=== PATIENT | female | born 1960 | race Caucasian/White ===

== ENCOUNTER 2023-01-22 14:45 | Emergency (ER) | payer OTHER, SELFPAY ==
[2023-01-22 15:03] VITALS: BP 125/77; PULSE 93; RESP 16; TEMP 36; O2SAT 98; BMI 32.9
--- NOTE | 2023-01-22 15:03 | ED.GENADULT ---
HPI - General Adult General Chief complaint: Skin/Abscess/Foreign Body <CECY Daniel - Last Filed: 01/22/23 15:11> Stated complaint: Cellulitis <CECY Daniel - Last Filed: 01/22/23 15:11> Time Seen by Provider: 01/22/23 17:05 <CECY Daniel - Last Filed: 01/22/23 15:11> Source: patient, RN notes reviewed and old records reviewed <Thiago Franz - Last Filed: 01/22/23 19:33> Mode of arrival: ambulatory <Thiago Franz - Last Filed: 01/22/23 19:33> Limitations: no limitations <Thiago Franz - Last Filed: 01/22/23 19:33> History of Present Illness HPI narrative: 62-year-old female presents for evaluation of an abscess to the back of her scalp. patient reports that she 1st noticed redness, pain and swelling to the back of her scalp just above her neck 1 week ago. She states the area has been getting significantly worse. She saw her primary doctor was given Bactrim a few days ago, this was changed to Augmentin yesterday but she has not taken any doses of Augmentin. Patient reports 10/10 pain to the area, there states has not been any drainage from the wound. She denies any fevers, chills <Thiago Franz - Last Filed: 01/22/23 19:33> Related Data Allergies/adverse reactions: Allergies Allergy/AdvReac Type Severity Reaction Status Date / Time No Known Allergies Allergy Verified 01/22/23 15:03 <CECY Daniel - Last Filed: 01/22/23 15:11> Review of Systems Constitutional: Constitutional: Reports as per HPI, Denies chills, Denies fatigue, Denies fever(s) and Denies headache(s) <Thiago Franz - Last Filed: 01/22/23 19:33> ENT: Denies headache(s) <Thiago Franz - Last Filed: 01/22/23 19:33> Cardiovascular: Cardiovascular: Denies chest pain and Denies dyspnea <Thiago Franz - Last Filed: 01/22/23 19:33> Respiratory: Respiratory: Denies cough and Denies dyspnea <Thiago Franz - Last Filed: 01/22/23 19:33> Gastrointestinal: Gastrointestinal: Denies abdominal pain, Denies constipation and Denies vomiting <Thiago Vazquezy - Last Filed: 01/22/23 19:33> Genitourinary: Genitourinary: Denies dysuria <Thiago Vazquezy - Last Filed: 01/22/23 19:33> Integumentary/Breasts: Comments: large abscess to posterior scalp <Thiago Vazquezy - Last Filed: 01/22/23 19:33> Neurologic: Denies headache(s) and Denies focal weakness <Thiago Vazquezy - Last Filed: 01/22/23 19:33> Endocrine: Endocrine: Denies fatigue <Thiago Schilling Last Filed: 01/22/23 19:33> PMFSH Social History Social History: Social History Advance Directives: No Advance Directives Information Provided: No <CECY Daniel - Last Filed: 01/22/23 15:11> Physical Exam ED Vital Signs: Vital Signs - 24 hr 01/22/23 15:03 Temperature 96.8 F Pulse Rate 93 Respiratory Rate 16 Blood Pressure 125/77 Pulse Oximetry 98 Oxygen Delivery Method Room Air BMI result Body Mass Index 32.9 <CECY Daniel - Last Filed: 01/22/23 15:11> Vital Signs - 24 hr 01/22/23 15:03 Temperature 96.8 F Pulse Rate 93 Respiratory Rate 16 Blood Pressure 125/77 Pulse Oximetry 98 Oxygen Delivery Method Room Air BMI result Body Mass Index 32.9 <Thiago Franz - Last Filed: 01/22/23 19:33> Const General: healthy appearing, comfortable, no acute distress, alert and awake <Thiago Franz - Last Filed: 01/22/23 19:33> Nutritional Appearance: well nourished <Thiago Vazquez Last Filed: 01/22/23 19:33> Orientation/consciousness: patient oriented x3 <Thiago Franz Last Filed: 01/22/23 19:33> HENMT Head: Yes normocephalic and Yes atraumatic <Thiago Franz - Last Filed: 01/22/23 19:33> Throat: Yes posterior oropharynx normal < Last Filed: 01/22/23 19:33> Eyes Eyelids: Yes eyelids normal < Last Filed: 01/22/23 19:33> Conjunctivae: conjunctivae normal < Last Filed: 01/22/23 19:33> Sclerae: sclerae normal < Last Filed: 01/22/23 19:33> Corneas: corneas normal < Last Filed: 01/22/23 19:33> Pupils: Equal, round and reactive pupils present < Last Filed: 01/22/23 19:33> EOM: EOMs intact bilaterally < Last Filed: 01/22/23 19:33> Neck Other: patient has a large, 4 x 4 cm area of fluctuance, erythema and tenderness to the posterior scalp just above the neck. This area is tender to palpation. < - Last Filed: 01/22/23 19:33> Neck: Yes full ROM < Last Filed: 01/22/23 19:33> Resp Effort & Inspection: normal respiratory effort, able to speak in complete sentences, no audible wheezes and not labored < Last Filed: 01/22/23 19:33> Auscultation: clear to auscultation bilaterally < Last Filed: 01/22/23 19:33> GI Inspection: No distended < Last Filed: 01/22/23 19:33> Palpation (GI): Soft to palpation, not firm, nontender, no guarding and not rigid < Last Filed: 01/22/23 19:33> Auscultation: normoactive bowel sounds < Last Filed: 01/22/23 19:33> Back/Spine/Pelvis Other: Patient has good range of motion with rotation, flexion-extension the neck < - Last Filed: 01/22/23 19:33> Cervical Spine: cervical ROM normal <Thiago Franz - Last Filed: 01/22/23 19:33> Neuro General: patient oriented x3 <Thiago Franz - Last Filed: 01/22/23 19:33> Cranial nerves: Yes CN's II-XII intact bilaterally, Yes Equal, round and reactive pupils present and Yes Bilaterally intact EOM present <Thiago Franz - Last Filed: 01/22/23 19:33> Cognition (Neuro): normal cognition <Thiago Franz - Last Filed: 01/22/23 19:33> Extrem Other: Moving all extremities well without any obvious deformities <Thiago Franz - Last Filed: 01/22/23 19:33> Course Course Course Narrative: RME performed by Gisella Murphy PA-C. Patient is a 62 year old female presenting to the emergency department with swelling to the back of the head. Patient states that she was started on bactrim 4 days ago and then they switched to augmentin but it isn't getting better. Labs ordered. Patient placed back in the waiting room. <CECY Daniel - Last Filed: 01/22/23 15:11> Medications Administered Discontinued Medications Generic Name Dose Route Start Last Admin Trade Name Freq PRN Reason Stop Dose Admin Lidocaine HCl 5 ml 01/22/23 17:12 01/22/23 17:31 Lidocaine Hcl 1 % Mpf 5 Ml Vial INFILTRATI 01/22/23 17:13 5 ml ONCE ONE Administration <CECY Daniel Last Filed: 01/22/23 15:11> Medications Administered Discontinued Medications Generic Name Dose Route Start Last Admin Trade Name Freq PRN Reason Stop Dose Admin Lidocaine HCl 5 ml 01/22/23 17:12 01/22/23 17:31 Lidocaine Hcl 1 % Mpf 5 Ml Vial INFILTRATI 01/22/23 17:13 5 ml ONCE ONE Administration <Thiago Franz - Last Filed: 01/22/23 19:33> Procedures Abscess I/D Site: scalp ( posterior scalp just above the neck) <Thiago Franz - Last Filed: 01/22/23 19:33> Local Anesthetic: lidocaine 1% <Thiago Franz - Last Filed: 01/22/23 19:33> Amount of anesthesia used (mL): 5 <Thiago Franz - Last Filed: 01/22/23 19:33> Technique: incised with blade <Thiago Franz - Last Filed: 01/22/23 19:33> Amount of fluid expressed (mL): 10 <Thiago Franz - Last Filed: 01/22/23 19:33> Sent for culture/gram staining?: No <Thiago Franz - Last Filed: 01/22/23 19:33> Irrigation: Yes <Thiago Vazquezy - Last Filed: 01/22/23 19:33> Packing used?: [email or web address] <Thiago ContrerasSan Saba - Last Filed: 01/22/23 19:33> Medical Decision Making Medical Decision Making MDM Narrative: patient is a large cutaneous abscess to the posterior scalp just above the necessary she has labs are significant for mildly elevated [place] [address]. This is consistent with her known localized infection. There is no evidence of systemic infection: The patient's vital signs are stable. See incision and drainage procedure not <Thiago Franz - Last Filed: 01/22/23 19:33> Differential Diagnosis abscess Cellulitis Sebaceous cyst lymphadenopathy <Thiago Franz - Last Filed: 01/22/23 19:33> Lab Data MDM Lab Attestation statement: I reviewed the patient's lab results. <Thiago Franz - Last Filed: 01/22/23 19:33> Result Diagrams: 01/22/23 15:22 01/22/23 15:22 <CECY Daniel - Last Filed: 01/22/23 15:11> Labs: Lab Results 01/22/23 01/22/23 01/22/23 Range/Units 15:22 15:22 15:22 WBC 11.1 H (4.8-10.8) X10*3/uL RBC 4.64 (4.20-5.50) X10*6/uL Hgb 12.2 (12.0-16.0) g/dl Hct 38.1 (37.0-47.0) % MCV 82.1 (80.0-98.0) fL MCH 26.3 L (27.0-33.0) pg MCHC 32.0 (31.0-35.0) g/dl RDW 12.8 (11.0-16.0) % Plt Count 429 H (160-400) X10*3/uL MPV 9.6 (9.4-12.3) fL Immature Gran % (Auto) 2.3 H (0.0-0.4) % Neut % (Auto) 79.5 H (45-73) % Lymph % (Auto) 7.0 L (20-40) % Spink % (Auto) 6.9 (2-11) % Eos % (Auto) 3.4 (0-4) % Baso % (Auto) 0.9 (0-2) % Lymph # (Auto) 0.8 L (1.2-4.9) X10*3/uL Spink # (Auto) 0.8 (0.1-1.2) X10*3/uL Eos # (Auto) 0.4 (0.0-0.4) X10*3/uL Baso # (Auto) 0.1 (0.0-0.2) X10*3/uL Abs Immat Gran (auto) 0.25 H (0.00-0.03) X10*3/uL Absolute Neuts (auto) 8.8 H (2.0-8.3) x10*3/uL Absolute Nucleated RBC 0.000 (0.0-0.012) X10*3/uL Nucleated RBC % (auto) 0.0 (0.0-0.2) /100WBC ESR 45 H (0-20) MM/HR Sodium 130 L (135-145) mmol/L Potassium 5.1 (3.3-5.1) mmol/L Chloride 95 L (96-108) mmol/L Carbon Dioxide 20 L (22-29) mmol/L Anion Gap 20 (12-20) BUN 18 H (9-16) mg/dL Creatinine 1.07 (0.5-1.4) mg/dL Estim Creat Clear Calc 53.2 Estimated GFR 52 Random Glucose 326 H (60-115) mg/dL Calcium 9.3 (8.4-10.2) mg/dL Magnesium 1.7 (1.6-2.6) mg/dL Total Bilirubin 0.2 (0.0-1.0) mg/dL AST 37 H (5-31) U/L ALT 50 H (0-31) U/L Alkaline Phosphatase 138 H (39-117) U/L C-Reactive Protein 8.73 H (< or = 0.50) mg/dL Total Protein 7.3 (6.5-8.0) g/dL Albumin 3.9 (3.5-5.0) g/dL <CECY Daniel - Last Filed: 01/22/23 15:11> Lab Results 01/22/23 01/22/23 01/22/23 Range/Units 15:22 15:22 15:22 WBC 11.1 H (4.8-10.8) X10*3/uL RBC 4.64 (4.20-5.50) X10*6/uL Hgb 12.2 (12.0-16.0) g/dl Hct 38.1 (37.0-47.0) % MCV 82.1 (80.0-98.0) fL MCH 26.3 L (27.0-33.0) pg MCHC 32.0 (31.0-35.0) g/dl RDW 12.8 (11.0-16.0) % Plt Count 429 H (160-400) X10*3/uL MPV 9.6 (9.4-12.3) fL Immature Gran % (Auto) 2.3 H (0.0-0.4) % Neut % (Auto) 79.5 H (45-73) % Lymph % (Auto) 7.0 L (20-40) % Spink % (Auto) 6.9 (2-11) % Eos % (Auto) 3.4 (0-4) % Baso % (Auto) 0.9 (0-2) % Lymph # (Auto) 0.8 L (1.2-4.9) X10*3/uL Spink # (Auto) 0.8 (0.1-1.2) X10*3/uL Eos # (Auto) 0.4 (0.0-0.4) X10*3/uL Baso # (Auto) 0.1 (0.0-0.2) X10*3/uL Abs Immat Gran (auto) 0.25 H (0.00-0.03) X10*3/uL Absolute Neuts (auto) 8.8 H (2.0-8.3) x10*3/uL Absolute Nucleated RBC 0.000 (0.0-0.012) X10*3/uL Nucleated RBC % (auto) 0.0 (0.0-0.2) /100WBC ESR 45 H (0-20) MM/HR Sodium 130 L (135-145) mmol/L Potassium 5.1 (3.3-5.1) mmol/L Chloride 95 L (96-108) mmol/L Carbon Dioxide 20 L (22-29) mmol/L Anion Gap 20 (12-20) BUN 18 H (9-16) mg/dL Creatinine 1.07 (0.5-1.4) mg/dL Estim Creat Clear Calc 53.2 Estimated GFR 52 Random Glucose 326 H (60-115) mg/dL Calcium 9.3 (8.4-10.2) mg/dL Magnesium 1.7 (1.6-2.6) mg/dL Total Bilirubin 0.2 (0.0-1.0) mg/dL AST 37 H (5-31) U/L ALT 50 H (0-31) U/L Alkaline Phosphatase 138 H (39-117) U/L C-Reactive Protein 8.73 H (< or = 0.50) mg/dL Total Protein 7.3 (6.5-8.0) g/dL Albumin 3.9 (3.5-5.0) g/dL <Thiago Franz - Last Filed: 01/22/23 19:33> Discharge Plan Discharge Clinical Impression: Abscess of skin or subcutaneous tissue <CECY Daniel - Last Filed: 01/22/23 15:11> Patient Disposition: Home, Self-Care <CECY Daniel - Last Filed: 01/22/23 15:11> Instructions: Abscess (ED) <CECY Daniel - Last Filed: 01/22/23 15:11> Additional Instructions: you need to have the packing removed in 2-3 days he may follow-up with Dr. Alexis, general surgery. call the office on Tuesday to schedule follow up, you may return to the ER if you cannot be seen within 3 days for gauze removal continue taking both antibiotics that you were previously prescribed. Apply warm compresses every 4 hours for 15 minutes <CECY Daniel - Last Filed: 01/22/23 15:11> Referrals: Florentin Alexis MD [Physician] - (abscess I&D follow up) <CECY Daniel - Last Filed: 01/22/23 15:11>
[2023-01-22 15:26] LABS: MANUAL DIFF FLAG NO
[2023-01-22 15:28] LABS: Basophils Absolute Auto 0.1 X10*3/uL (0.0-0.2); Basophils Percent Auto 0.9 % (0-2); Eosinophils Absolute Auto 0.4 X10*3/uL (0.0-0.4); Eosinophils Percent Auto 3.4 % (0-4); Hematocrit 38.1 % (37.0-47.0); Hemoglobin 12.2 g/dl (12.0-16.0); Imm Gran Abs Auto 0.25 X10*3/uL (0.00-0.03); Imm Gran Pct Auto 2.3 % (0.0-0.4); Lymphocytes Absolute Auto 0.8 X10*3/uL (1.2-4.9); Mean Corpuscular Hemoglobin 26.3 pg (27.0-33.0); Mean Corpuscular Volume 82.1 fL (80.0-98.0); Mean Platelet Volume 9.6 fL (9.4-12.3); Monocytes Absolute Auto 0.8 X10*3/uL (0.1-1.2); Monocytes Percent Auto 6.9 % (2-11); Neutrophils Absolute Auto 8.8 x10*3/uL (2.0-8.3); Neutrophils Percent Auto 79.5 % (45-73); Platelet Count 429 X10*3/uL (160-400); Red Blood Count 4.64 X10*6/uL (4.20-5.50); Red Cell Distribution Width 12.8 % (11.0-16.0); White Blood Count 11.1 X10*3/uL (4.8-10.8)
[2023-01-22 15:53] LABS: Alanine Aminotransferase 50 U/L (0-31); Albumin Level 3.9 g/dL (3.5-5.0); Alkaline Phosphatase 138 U/L (39-117); Anion Gap 20 (12-20); Aspartate Amino Transferase 37 U/L (5-31); Bilirubin Total 0.2 mg/dL (0.0-1.0); Blood Urea Nitrogen 18 mg/dL (9-16); C Reactive Protein 8.73 mg/dL (< or = 0.50); Calcium 9.3 mg/dL (8.4-10.2); Carbon Dioxide 20 mmol/L (22-29); Chloride 95 mmol/L (96-108); Creatinine Clr Calc Pharmacy 53.2; Estimated Glomerular Filt Rate 52; Glucose Random 326 mg/dL (60-115); Magnesium 1.7 mg/dL (1.6-2.6); Potassium 5.1 mmol/L (3.3-5.1); Sodium 130 mmol/L (135-145); Total Protein 7.3 g/dL (6.5-8.0)
[2023-01-22 16:13] LABS: Erythrocyte Sedimentation Rate 45 MM/HR (0-20)
[2023-01-22] MEDS: Lidocaine HCl 1 % MPF 5 ML VIAL INFILTRATI (17:31)
[2023-01-22 19:43] VITALS: BP 149/95; PULSE 97; RESP 17; TEMP 36.6; O2SAT 99
== END 2023-01-22 19:50 | disposition home or self-care (01) ==
PROVIDERS: Physician Assistant Medical; Emergency Provider Student in an Organized Health Care Education/Training Program; PCP Registered Nurse
DX: L02.811 Cutaneous abscess of head [any part, except face] (principal)
CPT/HCPCS: 10060; 36415; 80053; 83735; 85025; 85652; 86140; 99284

== ENCOUNTER 2023-01-24 10:59 | Outpatient (REF) | payer OTHER, SELFPAY | END 2023-01-24 11:00 | disposition home or self-care (01) | LOC: HO.LNP 10:59 | PROVIDERS: PCP Registered Nurse; Visit Provider Surgery | DX: L02.811 Cutaneous abscess of head [any part, except face] (principal) | CPT/HCPCS: 10060; 87070; 87077; 87186; 87205 ==

== ENCOUNTER → 2023-01-26 09:57 | Outpatient (BNVA) | payer OTHER, SELFPAY | PROVIDERS: PCP Registered Nurse; Visit Provider Surgery | DX: Z13.89 Encounter for screening for other disorder (principal) ==

== ENCOUNTER → 2023-01-28 08:30 | Outpatient (BNVA) | payer OTHER, SELFPAY | PROVIDERS: PCP Registered Nurse; Referring Provider Registered Nurse; Visit Provider Surgery | DX: Z13.89 Encounter for screening for other disorder (principal) ==

== ENCOUNTER → 2023-02-04 08:56 | Outpatient (BNVA) | payer OTHER, SELFPAY | PROVIDERS: PCP Registered Nurse; Visit Provider Surgery | DX: L02.811 Cutaneous abscess of head [any part, except face] (principal) | CPT/HCPCS: 11042 ==

== ENCOUNTER → 2023-02-15 08:50 | Outpatient (BNVA) | payer OTHER, SELFPAY | PROVIDERS: PCP Registered Nurse; Visit Provider Surgery | DX: Z13.89 Encounter for screening for other disorder (principal) ==